=== PATIENT | male | born 1970 | race Hispanic/Latino ===

== ENCOUNTER 2016-12-12 14:03 | Emergency (ER) | payer SELFPAY ==
[2016-12-12 15:04] LABS: #Lymphocytes 1.1 thou/uL (1.20-3.40); #Monocytes 0.5 thou/uL (0.11-0.59); #Neutrophils 12.1 thou/uL (1.40-6.50); %Basophils 0.1 % (0.0-1.0); %Eosinophils 0.2 % (0.0-10.0); %Lymphocytes 7.9 % (21.0-51.0); %Monocytes 3.5 % (0.0-10.0); Mean Platelet Volume 6.5 fL (7.4-10.4); Red Blood Cell (RBC) Count 5.02 mill/uL (4.70-6.10); White Blood Cell (WBC) Count 13.7 thou/uL (4.8-10.8)
[2016-12-12 15:13] LABS: ALT (SGPT) 21 U/L (8-55); AST (SGOT) 18 U/L (5-34); Alkaline Phosphatase 66 U/L (40-150); Anion Gap 11 mmol/L (10-20); BUN (Urea Nitrogen) 17 mg/dL (8.9-20.6); Bilirubin, Total 0.6 mg/dL (0.2-1.2); CK (CPK) 138 U/L (30-200); Calc. Creatinine Clearance 0 mL/min (70-130); Carbon Dioxide 28 mmol/L (22-29); Chloride 101 mmol/L (98-107); Estimated GFR-MDRD 86; Globulin 3.4 g/dL (2.4-3.5); Protein, Total 7.7 g/dL (6.0-8.3)
[2016-12-12 15:16] LABS: Troponin I Less than 0.010 ng/mL (< 0.028)
--- NOTE | 2016-12-12 15:30 | RAD ---
PORTABLE AP CHEST: Date: 12-12-16 History: Syncope and blurry vision. FINDINGS: Cardiac silhouette and pulmonary vasculature are within normal limits. The lungs are clear. There is a remote healed fracture involving the posterior right sixth rib. IMPRESSION: No acute cardiopulmonary process. POS: [facility]
--- NOTE | 2016-12-12 16:03 | CT ---
CT BRAIN NONCONTRAST: DATE: 12-12-16 HISTORY: 46-year-old male status post syncope. COMPARISON: None. FINDINGS: There is either a single calcification or three tiny calcifications abutting each other, in aggregat e measuring approximately 3 x 4 mm, in the vicinity of the foramen of [place]. The right lateral ventr icle is asymmetrically moderately dilated, especially the body and trigone, but not the occipital ho rn or temporal horn. The right frontal horn is moderately larger than the left. There is a tiny calcification along the cortical-pial surface of the right paramedian frontal lobe. There is no mass effect or midline shift. No extraaxial fluid collection. No evidence of large corti lisa infarction. No acute intraaxial or extraaxial hemorrhage. Calvarium is intact. Bilateral tympano mastoid cavities, and the visualized portions of the paranasal sinuses, are grossly clear. IMPRESSION: 1. Small calcification or a cluster of calcifications in the vicinity of the foramen of [place] on the right. Etiology is uncertain. One possibility is old (inactive) neurocysticocercosis. 2. Asymmetry of the lateral ventricles: right is larger than the left. This could be congenital/deve lopmental, and not necessarily obstructive in nature, although obstruction is a possibility. 3. Tiny calcification at the right frontal cortical-pial surface. 4. No acute intracranial findings. SINTIA Juarez POS: [facility]
== END 2016-12-12 16:33 | disposition home or self-care (01) ==
LOC: ERS 14:03
DX: R42 Dizziness and giddiness (principal)
CPT/HCPCS: 70450; 71010; 80053; 82553; 83735; 84484; 85025; 93005; 96360; 96361